=== PATIENT | male | born 1995 | race Two or more races ===

== ENCOUNTER 2019-11-10 08:52 | Emergency (ER) | payer OTHER ==
[~2019-11-10] VITALS: Ht 188 cm; Wt 84.0 kg
[2019-11-10 09:21] LABS: BASO # 0.1 x10^3/uL (0.0-0.2); BASO % 0 % (0-3); EOS % 0 % (0-3); HEMATOCRIT 47.4 % (39.0-53.0); HEMOGLOBIN 15.9 g/dL (13.0-17.5); LYMPH # 1.3 x10^3/uL (1.0-4.8); LYMPH % 10 % (24-48); MEAN CORPUSCULAR HEMOGLOBIN 30 pg (25-35); MEAN CORPUSCULAR HGB CONC 34 g/dL (31-37); MEAN CORPUSCULAR VOLUME 91 fL (79-100); MONO # 0.5 x10^3/uL (0.0-1.1); MONO % 4 % (0-9); NEUT # 11.3 x10^3uL (1.8-7.7); NEUT % 86 % (31-73); PLATELET COUNT 168 x10^3/uL (140-400); RED BLOOD COUNT 5.23 x10^6/uL (4.30-5.70); RED CELL DISTRIBUTION WIDTH 12.5 % (11.5-14.5); WHITE BLOOD COUNT 13.1 x10^3/uL (4.0-11.0)
--- NOTE | 2019-11-10 09:22 | PHYS DOC ---
General Adult EDM: Chief Complaint: ABDOMINAL PAIN HPI: HPI: Patient is a 24-year-old male who presented to ER today for evaluation of mid abdominal pain associate with some nausea and chills since last night. Patient denies any fever, no diarrhea. Patient has history of bilateral inguinal hernia repair in the past. He still has his gallbladder and appendix. Patient denies any urinary symptoms. Patient denies any chest pain, no cough, no trouble breathing. Patient had not eaten anything since last night. Review of Systems: Review of Systems: Constitutional: Denies fever or chills Eyes: Denies change in visual acuity HENT: Denies nasal congestion or sore throat Respiratory: Denies cough or shortness of breath Cardiovascular: Denies chest pain or edema GI: Positive for abdominal pain, nausea, vomiting, no diarrhea. : Denies dysuria Musculoskeletal: Denies back pain or joint pain Integument: Denies rash Neurologic: Denies headache, focal weakness or sensory changes Endocrine: Denies polyuria or polydipsia Lymphatic: Denies swollen glands Psychiatric: Denies depression or anxiety Heart Score: Risk Factors: Risk Factors: DM, Current or recent (<one month) smoker, HTN, HLP, family history of CAD, obesity. Risk Scores: Score 0 - 3: 2.5% MACE over next 6 weeks - Discharge Home Score 4 - 6: 20.3% MACE over next 6 weeks - Admit for Clinical Observation Score 7 - 10: 72.7% MACE over next 6 weeks - Early Invasive Strategies Current Medications: Current Meds: Current Medications Medications (Trade) Dose Ordered Sig/Len Start Time Stop Time Status Last Admin Dose Admin Morphine Sulfate (Morphine 4mg Syringe) 4 mg 1X ONCE 11/10/19 09:30 11/10/19 09:31 UNV Ondansetron HCl (Zofran) 8 mg 1X ONCE 11/10/19 09:30 11/10/19 09:31 UNV Sodium Chloride 1,000 ml @ 1,000 mls/hr 1X ONCE 11/10/19 09:30 11/10/19 10:29 UNV Allergies: Allergies: Allergies Coded Allergies Type Severity Reaction Last Updated Verified No Known Drug Allergies 11/10/19 No Physical Exam: PE: Constitutional: Well developed, well nourished, no acute distress, non-toxic appearance. [] HENT: Normocephalic, atraumatic, bilateral external ears normal, oropharynx moist, no oral exudates, nose normal. [] Eyes: PERRLA, EOMI, conjunctiva normal, no discharge. [] Neck: Normal range of motion, no tenderness, supple, no stridor. [] Cardiovascular:Heart rate regular rhythm, no murmur [] Lungs & Thorax: Bilateral breath sounds clear to auscultation [] Abdomen: Bowel sounds normal, soft, There is tenderness to palpation in epigastric, periumbilical area, no rebound, no guarding, no masses, no pulsatile masses. [] Skin: Warm, dry, no erythema, no rash. [] Back: No tenderness, no CVA tenderness. [] Extremities: No tenderness, no cyanosis, no clubbing, ROM intact, no edema. [] Neurologic: Alert and oriented X 3, normal motor function, normal sensory function, no focal deficits noted. [] Psychologic: Affect normal, judgement normal, mood normal. [] Current Patient Data: Labs: Laboratory Tests Test 11/10/19 09:10 White Blood Count 13.1 x10^3/uL Red Blood Count 5.23 x10^6/uL Hemoglobin 15.9 g/dL Hematocrit 47.4 % Mean Corpuscular Volume 91 fL Mean Corpuscular Hemoglobin 30 pg Mean Corpuscular Hemoglobin Concent 34 g/dL Red Cell Distribution Width 12.5 % Platelet Count 168 x10^3/uL Neutrophils (%) (Auto) 86 % Lymphocytes (%) (Auto) 10 % Monocytes (%) (Auto) 4 % Eosinophils (%) (Auto) 0 % Basophils (%) (Auto) 0 % Neutrophils # (Auto) 11.3 x10^3uL Lymphocytes # (Auto) 1.3 x10^3/uL Monocytes # (Auto) 0.5 x10^3/uL Eosinophils # (Auto) 0.0 x10^3/uL Basophils # (Auto) 0.1 x10^3/uL Sodium Level 138 mmol/L Potassium Level 3.9 mmol/L Chloride Level 102 mmol/L Carbon Dioxide Level 26 mmol/L Anion Gap 10 Blood Urea Nitrogen 22 mg/dL Creatinine 1.1 mg/dL Estimated GFR (Cockcroft-Gault) 83.0 BUN/Creatinine Ratio 20 Glucose Level 123 mg/dL Calcium Level 9.1 mg/dL Total Bilirubin 0.7 mg/dL Aspartate Amino Transf (AST/SGOT) 23 U/L Alanine Aminotransferase (ALT/SGPT) 27 U/L Alkaline Phosphatase 81 U/L Total Protein 7.7 g/dL Albumin 4.2 g/dL Albumin/Globulin Ratio 1.2 Lipase 66 U/L Current Medications Medications (Trade) Dose Ordered Sig/Len Route PRN Reason Start Time Stop Time Status Last Admin Dose Admin Morphine Sulfate (Morphine 4mg Syringe) 4 mg 1X ONCE IV 11/10/19 09:30 11/10/19 09:31 DC 11/10/19 09:30 Ondansetron HCl (Zofran) 8 mg 1X ONCE IVP 11/10/19 09:30 11/10/19 09:31 DC 11/10/19 09:29 Sodium Chloride 1,000 ml @ 1,000 mls/hr 1X ONCE IV 11/10/19 09:30 11/10/19 10:30 DC 11/10/19 09:28 Iohexol (Omnipaque 300 Mg/ml) 75 ml 1X ONCE IV 11/10/19 09:30 11/10/19 09:34 DC 11/10/19 09:57 Info (Do NOT chart on this entry -- for MONITORING) 1 each PRN DAILY PRN MC SEE COMMENTS 11/10/19 09:45 11/12/19 09:44 Piperacillin Sod/ Tazobactam Sod 3.375 gm/Sodium Chloride 50 ml @ 100 mls/hr 1X ONCE IV 11/10/19 10:45 11/10/19 11:14 Sodium Chloride 50 ml @ As Directed STK-MED ONCE .ROUTE 11/10/19 10:46 11/10/19 10:47 DC Piperacillin Sod/ Tazobactam Sod (Zosyn) 3.375 gm STK-MED ONCE IV 11/10/19 10:47 11/10/19 10:47 DC Morphine Sulfate (Morphine 4mg Syringe) 4 mg 1X ONCE IV 11/10/19 11:00 11/10/19 11:01 UNV EKG: EKG: [] Radiology/Procedures: Radiology/Procedures: [][address] [address] IMAGING REPORT Signed PATIENT: POLLOCK,LISSET T ACCOUNT: [id number] : 1995 LOCATION: ER AGE: 24 SEX: M EXAM STATUS: REG ER ORD. PHYSICIAN: SANDRA TADEO DO REASON: abdominal pain with nausea and vomiting PROCEDURE: CT ABD PELV W/ IV CONTRST ONLY CT ABD PELV W/ IV CONTRST ONLY History: Abdominal pain, nausea and vomiting Comparison: None. Technique: After administration of intravenous contrast, helical CT of the abdomen and pelvis was performed from the lung bases through the ischial tuberosities. Coronal and sagittal reconstructions were obtained. 75 mL of Omnipaque 300 were used. One or more of the following dose reduction techniques were utilized: Automated exposure control (AEC), Adjustment of mA and/or kV according to patient size, Use of iterative reconstruction technique such as ASiR, CT scan done according to ALARA and image gently/image wisely Abdomen Findings: The visualized lung bases are clear. The liver, gallbladder, pancreas, spleen, and bilateral adrenal glands are normal. Symmetric renal enhancement. There is no focal renal mass. There is no hydronephrosis. The visualized loops of small bowel are normal. The visualized loops of large bowel are normal. There is no evidence of bowel obstruction. Dilated fluid-filled appendix measures 15 mm There is no mesenteric or retroperitoneal adenopathy. The abdominal aorta is normal in caliber. Urinary bladder is normal. Mild pelvic free fluid. There is no pelvic or inguinal adenopathy. There is no acute bony abnormality. IMPRESSION: Dilated fluid-filled appendix suspicious for acute appendicitis. No abscess or free air. Mild pelvic free fluid. Electronically signed by: Chastity Mims MD (11/10/2019 10:21 AM) [id number] DICTATED AND SIGNED BY: CHASTITY MIMS MD DATE: 11/10/19 1021 CC: PCP,JUAN; SANDRA TADEO DO ~ Course & Med Decision Making: Course & Med Decision Making Pertinent Labs and Imaging studies reviewed. (See chart for details) Patient is a 23-year-old male who was found to have acute appendicitis, no perforation, no abscess. Due to the no surgical service at this hospital, Dr. Davidson general surgeon at [facility] was consulted, he will see the patient over there. Dr. Aranda accepted patient to his hospitalist service over there. Dragon Disclaimer: Alana Disclaimer: This electronic medical record was generated, in whole or in part, using a voice recognition dictation system. Departure Departure: Impression: Primary Impression: Acute appendicitis Disposition: XFER SHT-TRM HOSP Condition: STABLE (TRANSFERRED TO [facility], ACCEPTED BY DR. ARANDA) Referrals: PCPJUAN (PCP) SANDRA TADEO DO November 10, 2019 09:22
[2019-11-10] MEDS ORDERED: IOHEXOL 300 MG/ML 75 ML VIAL. IV ONE (09:30)
[2019-11-10] MEDS ORDERED: ONDANSETRON PF 4 MG/2 ML VIAL. IVP ONE (09:30)
[2019-11-10] MEDS ORDERED: MORPHINE SULFATE 4 MG/ML DISP.SYRIN. IV ONE ×2 (09:30→11:00)
[2019-11-10] MEDS ORDERED: IV NORMAL SALINE 1,000ML 1,000 ML IV ONE (09:30)
[2019-11-10 09:32] LABS: CALCIUM 9.1 mg/dL (8.5-10.1); CREATININE 1.1 mg/dL (0.7-1.3); POTASSIUM 3.9 mmol/L (3.5-5.1)
[2019-11-10 09:37] LABS: ALBUMIN 4.2 g/dL (3.4-5.0); ALBUMIN/GLOBULIN RATIO 1.2 (1.0-1.7); TOTAL BILIRUBIN 0.7 mg/dL (0.2-1.0); TOTAL PROTEIN 7.7 g/dL (6.4-8.2)
[2019-11-10] MEDS ORDERED: CONTRAST GIVEN MC PRN (09:45)
--- NOTE | 2019-11-10 10:24 | RAD ---
CT ABD PELV W/ IV CONTRST ONLY History: Abdominal pain, nausea and vomiting Comparison: None. Technique: After administration of intravenous contrast, helical CT of the abdomen and pelvis was performed from the lung bases through the ischial tuberosities. Coronal and sagittal reconstructions were obtained. 75 mL of Omnipaque 300 were used. One or more of the following dose reduction techniques were utilized: Automated exposure control (AEC), Adjustment of mA and/or kV according to patient size, Use of iterative reconstruction technique such as ASiR, CT scan done according to ALARA and image gently/image wisely Abdomen Findings: The visualized lung bases are clear. The liver, gallbladder, pancreas, spleen, and bilateral adrenal glands are normal. Symmetric renal enhancement. There is no focal renal mass. There is no hydronephrosis. The visualized loops of small bowel are normal. The visualized loops of large bowel are normal. There is no evidence of bowel obstruction. Dilated fluid-filled appendix measures 15 mm There is no mesenteric or retroperitoneal adenopathy. The abdominal aorta is normal in caliber. Urinary bladder is normal. Mild pelvic free fluid. There is no pelvic or inguinal adenopathy. There is no acute bony abnormality. IMPRESSION: Dilated fluid-filled appendix suspicious for acute appendicitis. No abscess or free air. Mild pelvic free fluid. Electronically signed by: Jean Mims MD (11/10/2019 10:21 AM) [id number]
[2019-11-10] MEDS ORDERED: PIPERACILLIN/TAZOBACTAM 3.375 GM in IV NORMAL SALINE 50ML 50 ML IV ONE (10:45)
[2019-11-10] MEDS ORDERED: IV NORMAL SALINE 50ML 50 ML ONE (10:46)
[2019-11-10] MEDS ORDERED: PIPERACILLIN/TAZOBACTAM 3.375 GM VIAL IV ONE (10:47)
[2019-11-10 11:05] VITALS: BP 136/76
[2019-11-10 11:42] LABS: BACTERIA,URINE 0 /HPF (0-FEW); BILIRUBIN,URINE NEG (NEG); CLARITY,URINE CLEAR; COLOR,URINE YELLOW; GLUCOSE,URINE NEG (NEG); NITRITE,URINE NEG (NEG); RBC,URINE 0 /HPF (0-2); SQUAMOUS EPITHELIAL CELL,UR FEW /LPF; UROBILINOGEN,URINE 0.2 mg/dL (0.2 mg/dL); WBC,URINE OCC /HPF (0-4)
== END 2019-11-10 11:42 | disposition short-term general hospital (02) ==
LOC: ER 08:52
DX: K35.80 Unspecified acute appendicitis (principal); R11.2 Nausea with vomiting, unspecified
CPT/HCPCS: 36415; 74177; 80053; 81001; 83690; 85025; 96361; 96365; 96375; 96376; 99285; J2270; J2405; J2543; Q9967; J7030